=== PATIENT | male | born 1970 | race African-American/Black ===

== ENCOUNTER 2017-02-26 10:18 | Emergency (ER) | payer OTHER ==
[~2017-02-26] VITALS: Ht 180.3 cm; Wt 86.2 kg
[2017-02-26] MEDS ORDERED: NKM (10:28)
[2017-02-26] MEDS ORDERED: ALBUTEROL SULF8.5 GM INH (10:28)
[2017-02-26] MEDS ORDERED: fentaNYL 100 mcg/2 mL IV ONE ×2 (10:45→12:00)
[2017-02-26] MEDS ORDERED: Dexamethasone 4mg/ml vial IVP ONE (10:45)
[2017-02-26] MEDS ORDERED: Lidocaine 2% Visc 15ml soln ORAL ONE (10:45)
[2017-02-26] MEDS ORDERED: cefTRIAXone 1 GM in NS 55 ML IVPB ONE (10:45)
[2017-02-26 12:10] VITALS: BP 127/83
--- NOTE | 2017-02-26 13:00 | Emergency Room Report ---
History of Present Illness General Chief Complaint: Sore Throat Source: Patient Present Illness HPI Patient with sore throat for 3 days, worsening. Today there has been a change in his voice and he has some pain with opening up his mouth fully. Aches and feverish. Able to swallow liquids. Pain is 9/10, constant, burning and worse with swallowing. No cough, rashes, chest pain. No problems breathing. No NVD, dysuria. Some myalgias and headache. Feels weak and dizzy with standing. 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 Reviewed Nursing Documentation: PMH: Agreed, PSxH: Agreed Nursing Documentation-PMH Past Medical History: No History, Except For Hx Asthma: Yes Review of Systems All Other Systems: negative except mentioned in HPI Physical Exam Vital Signs Date Time Temp Pulse Resp B/P Pulse Ox O2 Delivery O2 Flow Rate FiO2 02/26/17 10:24 98.2 79 16 121/83 96 Room Air Sp02 EP Interpretation: reviewed, normal General Appearance: well appearing, no apparent distress, GCS 15 Head: normocephalic Eyes: bilateral eye PERRL, bilateral eye normal inspection ENT: moist mucus membranes, tonsillar swelling - R with some buldging, pharyngeal erythema, tonsillar exudate Neck: supple Respiratory: lungs clear, normal breath sounds Cardiovascular #1: regular rate, rhythm Cardiovascular #2: 2+ radial (R) Gastrointestinal: normal inspection, normal bowel sounds, non tender, no mass, non-distended Musculoskeletal: back normal, gait/station normal, normal range of motion Neurologic: alert, oriented x3, grossly normal Psychiatric: mood/affect normal Skin: normal inspection, warm/dry Medical Decision Making Diagnostic Impression: Primary Impression: Peritonsillar abscess ER Course Patient with throat pain. DDx: strep, [employer]KE[employer], viral, dehydration. Exam consistent with early peritonsilar abscess. Treatment with IV hydration, analgesia, lidocaine, antibiotics and decadron. Patient voice improved and pain lessened with treatment. Requests second dose of pain medicine. Also second liter ordered. Improved. Still feels weak with standing. Not tachycardic or toxic. Tolerating PO. Discussed observation at home and possibility of needing I and D of abscess, though I doubt this as he has presented early on. He understands this and also that he needs to return if the pain or swelling is worsening. Patient stable for outpatient observation and treatment. Last Vital Signs Date Time Temp Pulse Resp B/P Pulse Ox O2 Delivery O2 Flow Rate FiO2 02/26/17 13:16 98.3 16 121/83 96 Room Air 02/26/17 10:24 79 Status: improved Disposition: HOME, SELF-CARE Condition: Improved Scripts Ibuprofen* (MOTRIN*) 600 Mg Tablet 600 MG ORAL Q6H Y for For Pain, #20 TAB Prov: Erick Boogie M.D. 02/26/17 Lidocaine HCl 2% Viscous (Lidocaine HCl 2% Viscous) 100 Ml Solution 10 ML ORAL QID, #60 ML Prov: Erick Boogie M.D. 02/26/17 Tramadol Hcl* (ULTRAM*) 50 Mg Tablet 50 MG ORAL Q6H Y for For Pain, #10 TAB 0 Refills Prov: Erick Boogie M.D. 02/26/17 Amoxicillin/Potassium Clav 500-125 Tablet* (AUGMENTIN 500-125 TABLET*) 1 Each Tablet 1 TAB ORAL THREE TIMES A DAY, #21 TAB Prov: Erick Boogie M.D. 02/26/17 Referrals: NON PHYSICIAN (PCP) Erick Boogie M.D. Feb 26, 2017 13:00
[2017-02-26] MEDS ORDERED: AUGMENTIN 500-1 EACH ORAL (13:04)
[2017-02-26] MEDS ORDERED: IBUPROFEN600 MG ORAL (13:04)
[2017-02-26] MEDS ORDERED: TRAMADOL HCL50 MG ORAL (13:04)
[2017-02-26] MEDS ORDERED: LIDOCAINE VISC100 ML ORAL (13:04)
[2017-02-26] MEDS ORDERED: Oxycodone/Acetaminophen 5-325 ORAL ONE (13:15)
[2017-02-26 13:16] VITALS: BP 121/83
== END 2017-02-26 13:16 | disposition home or self-care (01) ==
LOC: EMR 10:45
DX: J36 Peritonsillar abscess (principal); J45.909 Unspecified asthma, uncomplicated
CPT/HCPCS: 96374; 96375; 99284; J0696; J1100; J2405; J3010; J7040

== ENCOUNTER 2018-12-02 12:10 | Emergency (ER) | payer OTHER ==
[~2018-12-02] VITALS: Ht 180.3 cm; Wt 95.3 kg
[~2018-12-02 12:10] MED LIST: ALBUTEROL SULF8.5 GM INH; AUGMENTIN 500-1 EACH ORAL; IBUPROFEN600 MG ORAL; LIDOCAINE VISC100 ML ORAL; NKM; TRAMADOL HCL50 MG ORAL
[2018-12-02 12:24] VITALS: BP 138/76
[2018-12-02] MEDS ORDERED: Albuterol/Ipratropium 3ml neb HHN ONE (12:30)
--- NOTE | 2018-12-02 12:40 | Emergency Room Report ---
History of Present Illness General Chief Complaint: Upper Respiratory Illness Source: Patient Present Illness HPI 48-year-old male with significant history of asthma uncontrolled and tobacco smoker here complaining of 1 week of productive cough, and continuous wheezing has not taken any [id number] medications for his cough he has been using his friend's albuterol as needed. . Reports that he started developing fever few days ago. Denies sore throat, congestion, rhinorrhea, abdominal pain, nausea vomiting S OB chest pain. Reports that he smokes 1 pack a day of cigarettes. denies all other associated Symptoms. Allergies: Coded Allergies: No Known Allergies (Unverified , 02/26/17) Patient History Past Medical History: see triage record Past Surgical History: unable to obtain Pertinent Family History: none Social History: Reports: smoking - 1ppd tobacco Immunizations: UTD Reviewed Nursing Documentation: PMH: Agreed; PSxH: Agreed Nursing Documentation-PMH Past Medical History: No History, Except For Hx Asthma: Yes Review of Systems All Other Systems: negative except mentioned in HPI Physical Exam Vital Signs Date Time Temp Pulse Resp B/P (MAP) Pulse Ox O2 Delivery O2 Flow Rate FiO2 12/02/18 12:19 101.7 77 18 138/76 90 Room Air Sp02 EP Interpretation: reviewed, normal General Appearance: well appearing, alert, GCS 15, mild distress Head: normocephalic Eyes: bilateral eye normal inspection, bilateral eye PERRL ENT: hearing grossly normal, normal pharynx, TMs + canals normal, pharyngeal erythema Neck: normal inspection, full range of motion, thyroid normal, no meningismus Respiratory: chest non-tender, lungs clear, normal breath sounds, no rhonchi, no respiratory distress, wheezing - diffuse Cardiovascular #1: normal inspection, normal peripheral pulses, regular rate, rhythm, no edema, no murmur Gastrointestinal: normal inspection, non tender, soft Rectal: deferred Genitourinary: no CVA tenderness Musculoskeletal: normal inspection, back normal Neurologic: normal inspection, alert, oriented x3 Psychiatric: normal inspection, judgement/insight normal Skin: normal inspection, normal color, no rash, warm/dry Lymphatic: normal inspection, no adenopathy Medical Decision Making PA Attestation All my diagnosis and treatment plans were reviewed ad discussed with my supervising physician Dr. Quinn Diagnostic Impression: Primary Impression: Bronchitis Additional Impression: Asthma ER Course 48-year-old male with significant history of asthma uncontrolled and tobacco smoker here complaining of 1 week of productive cough, and continuous wheezing has not taken any [id number] medications for his cough he has been using his friend's albuterol as needed. . Reports that he started developing fever few days ago. Denies sore throat, congestion, rhinorrhea, abdominal pain, nausea vomiting S OB chest pain. Reports that he smokes 1 pack a day of cigarettes. denies all other associated Symptoms. Ddx considered but are not limited to: bronchitis, asthma exacerbation, bronchitis, PNA, Vital signs: are WNL, pt. is afebrile H&PE are most consistent with: athma exacerbation, bronchitis ORDERS: breathing treatment(albuterol/ipratropium), azithromycin, medrol dose pack, tesselon pearls, albuterol inhaler ED INTERVENTIONS: breathing treatment. DISCHARGE: At this time pt. is stable for d/c to home. Will provide printed patient care instructions, and any necessary prescriptions. Care plan and follow up instructions have been discussed with the patient prior to discharge. follow up With a primary care provider for proper management of asthma Last Vital Signs Date Time Temp Pulse Resp B/P (MAP) Pulse Ox O2 Delivery O2 Flow Rate FiO2 12/02/18 12:24 101.7 77 18 138/76 90 Room Air Disposition: HOME, SELF-CARE Condition: Stable Patient Instructions: Acute Bronchitis, [id number], Asthma, Adult, Easy-to- Read Additional Instructions: follow up with primary Dr for asthma. avoid smoking Marky De La Torre Dec 02, 2018 12:40
[2018-12-02] MEDS ORDERED: ZITHROMAX250 MG ORAL (12:41)
[2018-12-02] MEDS ORDERED: VENTOLIN HFA18 GM INH (12:41)
[2018-12-02] MEDS ORDERED: MEDROL DOSEPAK4 MG ORAL (12:41)
[2018-12-02] MEDS ORDERED: TESSALON PERLE100 M2 ORAL (12:41)
[2018-12-02 13:18] VITALS: BP 138/76
== END 2018-12-02 13:20 | disposition home or self-care (01) ==
LOC: EMR 12:49
DX: J20.9 Acute bronchitis, unspecified (principal); J45.909 Unspecified asthma, uncomplicated; F17.210 Nicotine dependence, cigarettes, uncomplicated; R50.9 Fever, unspecified
CPT/HCPCS: 94640; 99284; J7620